=== PATIENT | male | born 1985 | race Caucasian/White ===

== ENCOUNTER → 2016-04-29 | Outpatient (CLI) | payer MEDICARE, MEDICAID | END | disposition home or self-care (01) | LOC: RAD.S 15:48 | DX: M54.5 Low back pain (principal); M54.9 Dorsalgia, unspecified ==

== ENCOUNTER 2016-06-20 18:08 | Emergency (ER) | payer MEDICARE, MEDICAID ==
--- NOTE | 2016-06-21 13:08 | ER ---
ADMIT: 06/20/2016 RM/LOC: ER [facility] MR#: [id number] [address] [address] [address] REYES [address] [place] [address] Emergency Room Report SEX: M AGE: 30 : 1985 DATE: 06/20/2016 HISTORY: The patient is a 30-year-old male with past medical history of schizophrenia, came to the ER with chief complaint of left inguinal pain. The patient states for the last day, he has intermittent left inguinal pain and previously he was diagnosed with left inguinal hernia, and he is waiting for the appointment for [facility] this week. The patient denies any nausea or vomiting or upper abdominal pain, and states he passed gas and had normal bowel movement. Pain is sharp and is on the left inguinal area. The patient states yesterday he was helping his brother moving and he lifted heavy objects and believes it brought up the pain in the 1st place. In the ER, patient was in mild pain, the patient received fentanyl IV. PHYSICAL EXAMINATION: HEAD AND NECK: Noncontributory. VITAL SIGNS: Stable. CHEST: Clear bilaterally. HEART: Normal heart sounds. ABDOMEN: Soft. Normal bowel sounds. In the inguinal canal on the left side, there is an obvious inguinal hernia, the patient was put in reverse Trendelenburg and after giving fentanyl IV, it was easily reduced with minimal manipulation. Pain was resolved. Examination of the testicles, epididymis, and scrotum are all normal. The patient was pain free, lactic acid was 1.5. The patient is stable to be discharged to home. The patient has appointment with [facility] on Wednesday. Ace Mckinley MD/ sandra JOB #: [id number] CC: Nba Gonzáles MD, Attending Physician Bon Lundberg MD, Family Physician
== END 2016-06-20 19:50 | disposition home or self-care (01) ==
LOC: ER 18:08
DX: K40.90 Unilateral inguinal hernia, without obstruction or gangrene, not specified as recurrent (principal); Z88.0 Allergy status to penicillin; Z88.5 Allergy status to narcotic agent; Z79.899 Other long term (current) drug therapy

== ENCOUNTER 2016-06-21 11:03 | Emergency (ER) | payer MEDICARE, MEDICAID ==
--- NOTE | 2016-06-27 21:34 | ER ---
ADMIT: 06/21/2016 RM/LOC: ER [facility] MR#: [id number] [address] [address] [place] [address] Emergency Room Report SEX: M AGE: 30 : 1985 DATE: 06/21/2016 ADDENDUM: This patient comes into the ER because he has a known inguinal hernia. He has an appointment with Dr. Lundberg on Wednesday, but he is having pain. He was seen in the ER yesterday and the day before that, was seen at Urgent Care. He says that every time he stands up, the hernia pops out and when he lays down, he is able to reduce it. On physical exam, he is lying down and I cannot palpate the hernia in his left inguinal canal, but he states it usually pops out as a bubble. His abdomen is soft. He does not have any pain now while he is lying down. I gave him tramadol in the ER and I will have him keep his appointment with Dr. Lundberg tomorrow. Please see my T-sheet. DIAGNOSIS: Left inguinal hernia. DANIELLA Roy / Miguel Angel Garza MD / sandra JOB #: [id number] CC: Miguel Angel Garza MD, Attending Physician Mathew Darden, Family Physician
== END 2016-06-21 12:23 | disposition home or self-care (01) ==
LOC: ER 11:03
DX: K40.90 Unilateral inguinal hernia, without obstruction or gangrene, not specified as recurrent (principal); F41.9 Anxiety disorder, unspecified; Z88.0 Allergy status to penicillin; Z88.5 Allergy status to narcotic agent; Z79.899 Other long term (current) drug therapy

== ENCOUNTER 2016-06-22 21:42 | Emergency (ER) | payer MEDICARE, MEDICAID | END 2016-06-22 22:16 | disposition home or self-care (01) | DX: K40.90 Unilateral inguinal hernia, without obstruction or gangrene, not specified as recurrent (principal); Z88.0 Allergy status to penicillin; Z88.5 Allergy status to narcotic agent; Z79.899 Other long term (current) drug therapy ==

== ENCOUNTER 2016-07-12 21:48 | Emergency (ER) | payer MEDICARE, MEDICAID ==
--- NOTE | 2016-08-16 15:32 | ER ---
ADMIT: 07/12/2016 RM/LOC: ER [facility] MR#: [id number] [address] [address] ANETA REYESJEANMARIE Maria G [address] [place] [address] Emergency Room Report SEX: M AGE: 30 : 1985 DATE: 07/12/2016 A 30-year-old gentleman comes in with vague complaints of abdominal pain. He apparently had a hernia surgery repaired two weeks ago, had some intermittent abdominal pain since that time. It is really no better or worse, just wanted to check. See T sheet for history and physical. The patient's KUB showed stool, otherwise within normal parameters. DIAGNOSIS: Abdominal pain. Discharged. Instructed to follow up with Dr. Long tomorrow. Miguel Angel Garza MD/ sandra JOB #: [id number] CC: Carlos Singh MD, Attending Physician
== END 2016-07-12 23:58 | disposition home or self-care (01) ==
LOC: ER 21:48
DX: R10.9 Unspecified abdominal pain (principal); J45.909 Unspecified asthma, uncomplicated; F31.9 Bipolar disorder, unspecified; Z88.0 Allergy status to penicillin; Z88.6 Allergy status to analgesic agent; Z79.899 Other long term (current) drug therapy